=== PATIENT | male | born 1975 | race Caucasian/White ===

== ENCOUNTER 2017-02-26 15:05 | Emergency (ER) | payer MEDICAID ==
[~2017-02-26] VITALS: Ht 182.9 cm; Wt 86.2 kg
[~2017-02-26 15:05] MED LIST: KEFLEX 500MG.500 MG PO; NOMEDS; PERCOCET 5/3251 EACH PO; PHENERGAN 25MG.25 M1 PO; SEPTRA DS 800 M1 TAB PO; ULTRAM50 MG PO; VIBRAMYCIN 100100 MG PO; VICODIN 5/500 T1 TAB PO
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
--- OUTSIDE RECORDS SUMMARY | 2017-02-26 15:26 | External Medical Summary Rpt | CCD ---
Author Author , JENIFER Organization JENIFER Address Unknown Phone [email or web address] Immunization Name Date Rout CVX Reac Dose Comm Prov Is Faci e tion ent ider Refu lity Give sed n Hep 09- 43 999 Hist D203 No D203 B, 8-20 oric 45 45 adul 16 al t Info rmat ion - Sour ce Unsp ecif ied
--- OUTSIDE RECORDS SUMMARY | 2017-02-26 15:26 | External Medical Summary Rpt | CCD ---
Author Author , JENIFER Organization JENIFER Address Unknown Phone [email or web address] Immunization Name Date Rout CVX Reac Dose Comm Prov Is Faci e tion ent ider Refu lity Give sed n Hep 09- 43 999 Hist D203 No D203 B, 8-20 oric 45 45 adul 16 al t Info rmat ion - Sour ce Unsp ecif ied
--- OUTSIDE RECORDS SUMMARY | 2017-02-26 15:26 | External Medical Summary Rpt ---
Author Author JENIFER Production, JENIFER Production Organization [employer] Address Unknown Phone Unavailable Results CBC W Auto Differential panel in Blood Observa Value Referen Units Interpr Notes Date tion ce etation Range Basophils 0 - 0.2 K/MM3 Normal No September 24 inform2016 [#/volume on in 12:10 PM ] in source Blood by data Automated count Basophils 0.1 - 2.0 % Normal No September 242016 leukocyte on in 12:10 PM s in source Blood by data Automated count Eosinophi 0.0 - 0.4 K/mm3 Normal No September 24 ls 2016 [#/volume on in 12:10 PM ] in source Blood by data Automated count Eosinophi 0.1 - % Normal No September 24 ls/100 12.0 2016 leukocyte on in 12:10 PM s in source Blood by data Automated count Granulocy 1.3 - 8.0 K/mm3 Normal No September 24 gregg 2016 [#/volume on in 12:10 PM ] in source Blood by data Automated count Granulocy 37.0 - % Normal No September 24 gregg/100 80.0 2016 leukocyte on in 12:10 PM s in source Blood by data Automated count Hematocri 42.0 - % Normal No September 24 t [Volume 52.0 2016 on in 12:10 PM Fraction] source of Blood data Hemoglobi 14.1 - g/dL No September 24 n 18.0 informati informati 2016 [Mass/vol on in on in 12:10 PM ume] in source source Blood data data Lymphocyt 0.7 - 4.5 K/mm3 Normal No September 24 es informati 2016 [#/volume on in 12:10 PM ] in source Unspecifi data ed specimen by Automated count Lymphocyt 10 - 50 % Normal No September 24 es informati 2016 [#/volume on in 12:10 PM ] in source Unspecifi data ed specimen by Automated count Erythrocy 27 - 31.2 pg Normal No September 24 te mean 2016 corpuscul on in 12:10 PM ar source hemoglobi data n [Entitic mass] Erythrocy 31.8 - g/dl Normal No September 24 te mean 35.4 2016 corpuscul on in 12:10 PM ar source hemoglobi data n concentra tion [Mass/vol ume] by Automated count Erythrocy 82.2 - fl Normal No September 24 te mean 97.8 2016 corpuscul on in 12:10 PM ar volume source [Entitic data volume] by Automated count Monocytes 0.1 - 1.0 K/mm3 Normal No September 24 inform2016 [#/volume on in 12:10 PM ] in source Blood by data Automated count Monocytes 1.7 - 9.3 % Normal No September 24 /100 2016 leukocyte on in 12:10 PM s in source Blood by data Automated count Platelet 7.4 - fl Normal No September 24 mean 10.4 2016 volume on in 12:10 PM [Entitic source volume] data in Blood by Automated count Platelets 142 - 424 K/mm3 Normal No September 242016 [#/volume on in 12:10 PM ] in source Blood data Erythrocy 4.6 - 6.2 M/mm3 Normal No September 24 gregg 2016 [#/volume on in 12:10 PM ] in source Amniotic data fluid Erythrocy 11.5 - % Normal No September 24 te 17.5 2016 distribut on in 12:10 PM ion width source [Entitic data volume] by Automated count Leukocyte 4.8 - K/MM3 Normal No September 24 s 10.8 2016 [#/volume on in 12:10 PM ] in source Blood data Ethanol [Mass/volume] in Serum or Plasma Observa Value Referen Units Interpr Notes Date ti ce etation Range Ethanol 0 - 99 mg/dL Normal ANY September 24 [Mass/vol ALCOHOL > 2017 ume] in OR = 80 12:10 PM Serum or MG/DL IS Plasma CONSIDERE D LEGALLYIN TOXICATED UNDER [place] STATE LAW. Comprehensive metabolic 2000 panel in Serum or Plasma Observa Value Referen Units Interpr Notes Date tion ce etation Range Albumin/G 1.1 - 1.8 No Low No September 24 lobulin informati 2016 [Mass on in on in 12:10 PM ratio] in source source Serum or data data Plasma Albumin 3.4 - 5.0 gm/dL Normal No September 24 [Mass/vol informati 2016 ume] in on in 12:10 PM Serum or source Plasma data Alkaline 46 - 116 U/L Normal No September 24 phosphata inform2016 se on in 12:10 PM [Enzymati source c data activity/ volume] in Serum or Plasma Bilirubin 0.2 - 1.0 mg/dL Normal No September 24 .total informati 2016 [Mass/vol on in 12:10 PM ume] in source Serum or data Plasma Urea 7 - 18 mg/dL Low No September 24 nitrogen informati 2016 [Mass/vol on in 12:10 PM ume] in source Serum or data Plasma Calcium 8.5 - mg/dL Low No September 24 [Mass/vol 10.1 informati 2016 ume] in on in 12:10 PM Serum or source Plasma data Chloride 98 - 107 mmoL/L Normal No September 24 [Moles/vo informati 2016 lume] in on in 12:10 PM Serum or source Plasma data Carbon 21.0 - mmoL/L Normal No September 24 dioxide, 32.0 informati 2016 total on in 12:10 PM [Moles/vo source lume] in data Serum or Plasma Creatinin 0.70 - mg/dL Normal No September 24 e 1.30 informati 2016 [Mass/vol on in 12:10 PM ume] in source Serum or data Plasma Creatinin 50 - 200 ML/MIN Normal No September 24 e renal inform2016 clearance on in 12:10 PM source predicted data by Cockcroft -Gault formula Estimated >60 ML/MIN No REFERENCE September 24 informati RANGE: 2017 glomerula on in >60 12:10 PM r source ML/MIN/1. filtratio data 73 SQUARE n rate METERSIf (GF this patient is -A merican, then multiply theresult by 1.210. Globulin 1.3 - 3.2 gm/dL High No September 24 [Mass/vol informati 2016 ume] in on in 12:10 PM Serum source data Glucose 74 - 106 mg/dL High No September 24 [Mass/vol informati 2017 ume] in on in 12:10 PM Serum or source Plasma data Potassium 3.5 - 5.1 mmoL/L Low No September 24 informati 2016 [Moles/vo on in 12:10 PM lume] in source Serum or data Plasma Sodium 136 - 145 mmoL/L Normal No September 24 [Moles/vo informati 2017 lume] in on in 12:10 PM Serum or source Plasma data Aspartate 15 - 37 U/L Normal No September 242016 aminotran on in 12:10 PM sferase source [Enzymati data c activity/ volume] in Serum or Plasma Alanine 12 - 78 U/L Normal No September 24 aminotran informati 2016 sferase on in 12:10 PM [Enzymati source c data activity/ volume] in Serum or Plasma Protein 6.4 - 8.2 gm/dL Normal No September 24 [Mass/vol informati 2017 ume] in on in 12:10 PM Serum or source Plasma data
--- OUTSIDE RECORDS SUMMARY | 2017-02-26 15:26 | External Medical Summary Rpt ---
[...] IS Plasma CONSIDERE D LEGALLYIN TOXICATED UNDER [place] STATE LAW. Comprehensive metabolic 2000 panel in [...]
--- NOTE | 2017-02-26 16:31 | Urgent Treatment Center Report ---
History of Present Issue Date/Time Seen by Provider 02/26/17 1612 Visit Reason Pt arrived:Walked Presenting Problem:DIZZY, NAUSEA, LOW BACK PAIN BEGAN THIS AM, ALSO WANTS A FLU SHOT Location if Accident: Onset of symptoms date/time:/ or onset unknown for:MEDICAL HX UNKNOWN Have you (or family members/close friends) recently traveled outside the [place]? N If Yes, where/when: Have you had exposure to infectious disease within the past month? TB? Other? Specify: c/o being sent home from work and needing note that he was seen. "While here, I want to kill two birds with one stone and get a flu shot". Reports feeling fine when he woke up this morning. Went to work. While at work, started to feel dizzy and nauseated. Was sent home. Ate when he got home and immediately started to feel better. Took a nap. Woke up and feels fine but can't go back to work without a work excuse. Does have mid thoracic back pain, worse with movement, described as pinching but reports he is not here for that today. He had abnormal labs with PCP on 01/26. rcvd results in mail and was to follow up for repeat labs in 1-2 weeks but hasn't. Reports not here for that either and plans to follow up with primary care this coming week. Source patient Exam Limitations no limitations ALLERGIES Coded Allergies: Penicillins (Mild, 02/03/16) codeine (Mild, 02/03/16) Home Medications Reported Medications No Known Home Medications History Medical History General CAD? Yes Angina: Yes AL: Yes Hypertension? No Hyperlipidemia? No CHF? No DVT? No PE? No COPD? No Asthma? No Anemia? No GERD? No Gastric ulcers? No GI Bleed? No Hernia? No Thyroid Problems? No Hypothyroidism? No CVA? No Seizures? No Diabetes? No Renal Insuffiency? No UTI? No Stones? No BPH? No GB Disease: No Nephritic Syndrome? No Asplenia? No Hepatitis? No Sickle Cell Disease? No Arthritis? No Migraines? No Cataracts? No Glaucoma? No MRSA? No HIV? No TB? No Anxiety? No Depression? No Cancer? No More? No Immunization HX DT/Tetanus 5-10 Years Ago Flu NEVER Pneumonia NEVER Surgical Hx Previous Surgery?Y TONGUE Family History Family HX Diabetes No CAD No Hypertension No Hyperlipidemia No Cancer No TB No Social History Smoking Hx Smoker: Current Every Day Smoker Tobacco: Yes Type Cigarettes Packs/day 1 1/2 - 2 Packs Alcohol Alcohol: Yes Review of Systems All Other Systems Reviewed and Negative Constitutional denies chills, denies fever, malaise (earlier but resolved) Eyes denies drainage ENT ear pain (in january but resolved). denies: nose discharge, nose congestion, throat pain. Respiratory denies cough, denies shortness of breath Cardiovascular denies chest pain Gastrointestinal see HPI, denies abdominal pain, denies diarrhea, denies vomiting Genitourinary denies: dysuria, frequency. Musculoskeletal see HPI Skin denies lesions, denies rash Psychiatric/Neurological denies headache, other (dizziness resolved) Physical Exam Vital Signs Vital Signs Date Time Temp Pulse Resp B/P Pulse O2 O2 Flow FiO2 Ox Delivery Rate 02/26 1542 99.2 82 18 131/76 100 General Appearance normal appearance, no apparent distress Respiratory Status No: respiratory distress, productive cough, non productive cough. Lung Sounds anterior: lungs clear. posterior: lungs clear. bilateral: lungs clear. Cardiovascular regular rate/rhythm, no peripheral edema, no murmur Back vertebral tenderness (mid thoracic), nieves CVA tenderness Extremities normal range of motion Strength 5 Lower Ext (L), 5 Lower Ext (R) Neurologic alert, oriented x 3 Mental status normal mood/affect Skin normal color, warm/dry Medical Decision Making LABS/Meds/Orders Pt receiving controlled substance in ED? No Results/Orders Current Medication Orders Sig/Saima Start time Last Medication Dose Route Stop Time Status Admin Influenza Virus 0.5 ML ONCE ONE 02/26 1630 AC Vaccine Quadrival IM 02/26 1631 Progress [facility] Progress Notes Date 02/26/17 Comment declines further evaluation of back pain or repeat labs. Reports feeling better, needs work excuse and flu vaccine and will follow up with primary care next week Departure Departure Time of Disposition 1627 Disposition DC Home or Self Care(routine) Clinical Impression Primary Impression: Flu vaccine need Secondary Impressions: Encounter to obtain excuse from work Condition STABLE Referrals Van TELLEZ,A.C. (Family) Call first thing tuesday and schedule follow up appointment. Patient Instructions Influenza Vaccine Additional Instructions Be sure to return for new or returning symptoms this weekend Do not return to work if symptoms return. Instead, follow up. Follow up next week with PCP regarding abnormal labs last month. VERy improtant those get repeated. Be sure to discuss back pain at that time as your exam was not normal today as we discussed. Discharge Counseling Counseled pt/family regarding diagnosis, medications/RX, home care, follow up needs Prescriptions Current Visit Scripts No Known Home Medications at 1630
[2017-02-26 16:40] VITALS: BP 131/76
== END 2017-02-26 16:41 | disposition home or self-care (01) ==
LOC: UTC 15:05
DX: M54.5 Low back pain (principal); Z23 Encounter for immunization; Z88.0 Allergy status to penicillin; F17.210 Nicotine dependence, cigarettes, uncomplicated
CPT/HCPCS: G0008; Q2038

== ENCOUNTER 2017-03-14 03:56 | Emergency (ER) | payer MEDICAID ==
[~2017-03-14] VITALS: Ht 182.9 cm; Wt 86.2 kg
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
[2017-03-14] MEDS ORDERED: GABAPENTIN300 M1 PO (04:07)
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
--- OUTSIDE RECORDS SUMMARY | 2017-03-14 04:25 | External Medical Summary Rpt ---
[...] IS Plasma CONSIDERE D LEGALLYIN TOXICATED UNDER [place] LAW. Comprehensive metabolic 2000 panel in [...]
--- OUTSIDE RECORDS SUMMARY | 2017-03-14 04:25 | External Medical Summary Rpt | CCD ---
Author Author , JENIFER Organization JENIFER Address Unknown Phone [email or web address] Immunization Name Date Rout CVX Reac Dose Comm Prov Is Faci e tion ent ider Refu lity Give sed n Infl 10-3 140 0.5 Hist [facility] No [facility] 1-20 mL oric DOMO AID0 a, 17 al AYMA 3938 P-Fr Info N ee rmat ion - Sour ce Unsp ecif ied Hep 09-2 Intr 43 999 Hist D203 No D203 B, 8-20 amus oric 45 45 adul 16 cula al t r Info rmat ion - Sour ce Unsp ecif ied
--- OUTSIDE RECORDS SUMMARY | 2017-03-14 04:25 | External Medical Summary Rpt | CCD ---
Author Author , JENIFER Organization JENIFER Address Unknown Phone [email or web address] Immunization Name Date Rout CVX Reac Dose [...]
--- OUTSIDE RECORDS SUMMARY | 2017-03-14 04:25 | External Medical Summary Rpt ---
[...] IS Plasma CONSIDERE D LEGALLYIN TOXICATED UNDER [place] STATE LAW. Comprehensive metabolic 2000 panel in [...]
[2017-03-14 04:30] LABS: LYMPH # 3.4 K/mm3 (0.7-4.5); LYMPH % 30.8 % (10-50)
[2017-03-14 04:56] LABS: BUN 5 mg/dL (7-18)
[2017-03-14 04:57] LABS: GFR (ESTIMATED) 107 ML/MIN (>60)
--- NOTE | 2017-03-14 06:00 | RADIOLOGY REPORT PS360 ---
CHEST-PORTABLE HISTORY: CHEST PAIN SOA ORDERING PHYSICIAN: Nader Rosado MD PATIENT AGE: 41 years COMPARISON: 08/26/2014 FINDINGS: The cardiomediastinal silhouette and pulmonary vascularity are within normal limits. The lungs are clear without infiltrates, suspicious nodules, or pleural effusions. No acute bony abnormalities. IMPRESSION: Negative chest, no acute finding
--- NOTE | 2017-03-14 06:10 | RADIOLOGY REPORT PS360 ---
CT HEAD W/O CONTRAST HISTORY: Severe headache HEADACHE ORDERING PHYSICIAN: Nader Rosado MD PATIENT AGE: 41 years COMPARISON: 09/24/2016 TECHNIQUE: Axial images obtained without contrast. Brain and bone windows reviewed. FINDINGS: No midline shift, mass effect, intracranial hemorrhage, hydrocephalus, or extra-axial fluid collection is evident. The calvarium has an unremarkable appearance. No mastoid effusion. There is mild mucosal thickening of the right maxillary and ethmoid sinuses.. IMPRESSION: 1. No acute intracranial findings. 2. Mild paranasal sinus disease.
[2017-03-14 06:46] VITALS: BP 157/106
[2017-03-14 06:55] LABS: AMPHETAMINES/METAMPHETAMINES NEGATIVE ng/mL (<1000)
== END 2017-03-14 06:47 | disposition left against medical advice (07) ==
LOC: ER 03:56
PROVIDERS: Emergency Medicine
DX: R07.2 Precordial pain (principal); R51 Headache; R20.0 Anesthesia of skin; R53.1 Weakness; F17.210 Nicotine dependence, cigarettes, uncomplicated; I25.10 Atherosclerotic heart disease of native coronary artery without angina pectoris; Z88.0 Allergy status to penicillin; Z88.6 Allergy status to analgesic agent